=== PATIENT | female | born 1940 | race Caucasian/White ===

== ENCOUNTER 2022-03-26 09:35 | Inpatient (IN) | payer OTHER ==
[~2022-03-26] VITALS: Ht 152.4 cm; Wt 85.7 kg
[2022-03-26 09:40] VITALS: BP_SYST 151
[2022-03-26] MEDS ORDERED: NACL 0.9% 1,000 ML IV ONE (10:00)
[2022-03-26] MEDS ORDERED: ONDANSETRON HCL 4 MG/2 ML VIAL IVP ONE (10:00)
[2022-03-26 10:41] LABS: BASOPHILS # (AUTO) 0.1 K/uL (0.0-0.2); BASOPHILS % (AUTO) 0.6 % (0.0-2.0); EOSINOPHILS # (AUTO) 0.2 K/uL (0.0-0.4); EOSINOPHILS % (AUTO) 1.6 % (0.0-4.0); HEMATOCRIT 35.5 % (36-48); LYMPHOCYTES # (AUTO) 1.1 K/uL (1.0-5.5); MEAN CORPUSCULAR HEMOGLOBIN 32 pg (27-31); MEAN CORPUSCULAR HGB CONC 34 % (32-36); MEAN CORPUSCULAR VOLUME 95 fL (79.0-98.0); MONOCYTES # (AUTO) 0.3 K/uL (0.0-1.0); MONOCYTES % (AUTO) 3.2 % (1.7-9.3); NEUTROPHILS # (AUTO) 8.4 K/uL (1.8-7.7); NEUTROPHILS % (AUTO) 83.6 % (40.0-70.0); PLATELET COUNT (AUTO) 215 K/uL (130-430); RED BLOOD CELL COUNT(AUTO) 3.76 MIL/uL (4.2-6.2); RED CELL DISTRIBUTION WIDTH 12.8 % (9.0-15.0)
[2022-03-26] MEDS ORDERED: ATENOLOL 50 MG TABLET (TENORMIN) PO ONE (10:45)
[2022-03-26 10:59] LABS: ANION GAP 8 (5-15); CALCIUM 8.7 mg/dL (8.4-11.0); CHLORIDE 103 mmol/L (98-107); GLUCOSE 116 mg/dL (70-99); UREA NITROGEN, BLOOD 20 mg/dL (8-21)
[2022-03-26 11:08] LABS: INR 1.1 (0.8-1.2); PROTHROMBIN TIME 11.2 SECS (9.5-12.5)
[2022-03-26] MEDS ORDERED: LEVO25TA7 PO (11:13)
[2022-03-26] MEDS ORDERED: ESCI10TA PO (11:13)
[2022-03-26] MEDS ORDERED: LIP10 PO (11:13)
[2022-03-26] MEDS ORDERED: ATEN50TA PO (11:13)
[2022-03-26 11:14] LABS: BILIRUBIN,URINE NEGATIVE (NEGATIVE); CLARITY/URINE CLEAR (CLEAR); COLOR,URINE YELLOW (YELLOW); GLUCOSE,URINE NEGATIVE (NEGATIVE); KETONES,URINE NEGATIVE (NEGATIVE); LEUKOCYTE ESTERASE ,URINE NEGATIVE (NEGATIVE); NITRITE, URINE NEGATIVE (NEGATIVE); PH,URINE 6.5 (5.0-8.0); PROTEIN URINE NEGATIVE (NEGATIVE); UROBILINOGEN,URINE 0.2 (0.2-1.0)
[2022-03-26 11:17] LABS: BLOOD, URINE TRACE (NEGATIVE)
[2022-03-26 11:27] LABS: BACTERIA,URINE RARE /HPF (None Seen); WBC,URINE 0-3 /HPF (0-3)
[2022-03-26] MEDS ORDERED: iohexoL 350 mgI/mL, 100 ML INFUS..BTL IV ONE (11:44)
[2022-03-26 11:55] LABS: ALANINE AMINOTRANSFERASE 35 U/L (12-78); ALBUMIN 2.6 g/dL (3.4-4.8); ASPARTATE AMINOTRANSFERASE 35 U/L (10-37); TOTAL BILIRUBIN 0.7 mg/dL (0.0-1.0)
[2022-03-26 13:47] VITALS: BP_SYST 108
[2022-03-26] MEDS ORDERED: GLUCOSE (DEXTROSE) ORAL GEL -Adults PO PRN (15:00)
[2022-03-26] MEDS ORDERED: ACETAMINOPHEN 325 MG TABLET PO PRN ×2 (15:00→15:15)
[2022-03-26] MEDS ORDERED: D5W 1,000 ML IV PRN (15:00)
[2022-03-26] MEDS ORDERED: DEXTROSE 50% JECT 50 ML DISP.SYRIN IVP PRN (15:00)
[2022-03-26] MEDS ORDERED: HYDROcodone/ACETAMIN 10-325 MG TAB PO PRN (15:00)
[2022-03-26] MEDS ORDERED: NALOXONE HCL 0.4 MG/ML AMP (NARCAN) IVP PRN ×2 (15:00)
[2022-03-26] MEDS ORDERED: ONDANSETRON HCL 4 MG/2 ML VIAL IVP PRN (15:00)
[2022-03-26] MEDS ORDERED: LORazepam 2 MG/ML VIAL IVP PRN (15:00)
[2022-03-26] MEDS ORDERED: HYDROcodone/ACETAMIN 5-325 MG TAB (NORCO/ VICODIN) PO PRN (15:00)
[2022-03-26] MEDS: D5/0.45 NS 1,000 ML IV SCH (16:53)
[2022-03-26] MEDS ORDERED: DILTIAZEM HCL 30 MG TABLET PO ONE (17:00)
[2022-03-26 18:01] VITALS: BP_SYST 100
[2022-03-26] MEDS: APIXABAN 2.5 MG TABLET PO SCH (19:58)
[2022-03-26] MEDS: ATORVASTATIN 10 MG TABLET PO SCH (19:58)
[2022-03-26] MEDS ORDERED: APIXABAN 2.5 MG TABLET PO SCH (21:00)
[2022-03-26] MEDS: DILTIAZEM HCL 30 MG TABLET PO SCH (22:00)
[2022-03-27 00:13] VITALS: BP_SYST 114
[2022-03-27] MEDS: DILTIAZEM HCL 30 MG TABLET PO SCH ×3 (05:28→21:17)
[2022-03-27] MEDS: D5/0.45 NS 1,000 ML IV SCH ×3 (05:30→15:23)
[2022-03-27] MEDS: LEVOTHYROXINE SODIUM 0.025 MG TABLET PO SCH (06:15)
[2022-03-27 07:04] LABS: BASOPHILS % (AUTO) 0.7 % (0.0-2.0); EOSINOPHILS # (AUTO) 0.3 K/uL (0.0-0.4); EOSINOPHILS % (AUTO) 6.1 % (0.0-4.0); LYMPHOCYTES # (AUTO) 1.4 K/uL (1.0-5.5); LYMPHOCYTES % (AUTO) 28.5 % (20.5-51.5); MEAN CORPUSCULAR HEMOGLOBIN 33 pg (27-31); MEAN CORPUSCULAR HGB CONC 35 % (32-36); MEAN CORPUSCULAR VOLUME 94 fL (79.0-98.0); MONOCYTES # (AUTO) 0.3 K/uL (0.0-1.0); MONOCYTES % (AUTO) 7.1 % (1.7-9.3); NEUTROPHILS # (AUTO) 2.8 K/uL (1.8-7.7); NEUTROPHILS % (AUTO) 57.6 % (40.0-70.0); PLATELET COUNT (AUTO) 189 K/uL (130-430); RED BLOOD CELL COUNT(AUTO) 3.39 MIL/uL (4.2-6.2); RED CELL DISTRIBUTION WIDTH 13.2 % (9.0-15.0); WHITE BLOOD COUNT (AUTO) 4.8 K/uL (4.8-10.8)
[2022-03-27 08:07] LABS: ALANINE AMINOTRANSFERASE 30 U/L (12-78); ALBUMIN 2.3 g/dL (3.4-4.8); ANION GAP 5 (5-15); ASPARTATE AMINOTRANSFERASE 17 U/L (10-37); CALCIUM 8.4 mg/dL (8.4-11.0); CHLORIDE 109 mmol/L (98-107); CREATININE 1.22 mg/dL (0.55-1.30); GLUCOSE 117 mg/dL (70-99); TOTAL BILIRUBIN 0.4 mg/dL (0.0-1.0); UREA NITROGEN, BLOOD 15 mg/dL (8-21)
[2022-03-27 08:19] VITALS: BP_SYST 118
[2022-03-27] MEDS ORDERED: ESCITALOPRAM OXALATE 10 MG TABLET PO SCH (09:00)
[2022-03-27] MEDS: CITALOPRAM HYDROBROMIDE 20 MG TABLET PO SCH (10:16)
[2022-03-27] MEDS: ATENOLOL 50 MG TABLET (TENORMIN) PO SCH (10:16)
[2022-03-27] MEDS: APIXABAN 2.5 MG TABLET PO SCH ×2 (10:17→21:16)
[2022-03-27 11:26] VITALS: BP_SYST 138
[2022-03-27 15:19] VITALS: BP_SYST 109
[2022-03-27 20:00] VITALS: BP_SYST 137
[2022-03-27] MEDS: ATORVASTATIN 10 MG TABLET PO SCH (21:16)
[2022-03-28] VITALS: BP_SYST 128
[2022-03-28] MEDS: D5/0.45 NS 1,000 ML IV SCH (03:25)
[2022-03-28] MEDS: LEVOTHYROXINE SODIUM 0.025 MG TABLET PO SCH (06:03)
[2022-03-28] MEDS: DILTIAZEM HCL 30 MG TABLET PO SCH ×2 (06:03→14:00)
[2022-03-28 07:51] VITALS: BP_SYST 145
[2022-03-28 08:09] LABS: BASOPHILS % (AUTO) 0.9 % (0.0-2.0); EOSINOPHILS # (AUTO) 0.3 K/uL (0.0-0.4); EOSINOPHILS % (AUTO) 5.9 % (0.0-4.0); HEMATOCRIT 33.2 % (36-48); HEMOGLOBIN 11.3 g/dL (12.0-16.0); LYMPHOCYTES # (AUTO) 1.4 K/uL (1.0-5.5); LYMPHOCYTES % (AUTO) 31.4 % (20.5-51.5); MEAN CORPUSCULAR HEMOGLOBIN 32 pg (27-31); MEAN CORPUSCULAR HGB CONC 34 % (32-36); MEAN CORPUSCULAR VOLUME 95 fL (79.0-98.0); MONOCYTES # (AUTO) 0.4 K/uL (0.0-1.0); MONOCYTES % (AUTO) 8.9 % (1.7-9.3); NEUTROPHILS # (AUTO) 2.4 K/uL (1.8-7.7); NEUTROPHILS % (AUTO) 52.9 % (40.0-70.0); PLATELET COUNT (AUTO) 206 K/uL (130-430); RED BLOOD CELL COUNT(AUTO) 3.51 MIL/uL (4.2-6.2); RED CELL DISTRIBUTION WIDTH 13.2 % (9.0-15.0); WHITE BLOOD COUNT (AUTO) 4.6 K/uL (4.8-10.8)
[2022-03-28 08:27] LABS: ANION GAP 6 (5-15); CALCIUM 8.4 mg/dL (8.4-11.0); CHLORIDE 108 mmol/L (98-107); GLUCOSE 112 mg/dL (70-99); UREA NITROGEN, BLOOD 15 mg/dL (8-21)
[2022-03-28] MEDS: ATENOLOL 50 MG TABLET (TENORMIN) PO SCH (08:45)
[2022-03-28] MEDS: CITALOPRAM HYDROBROMIDE 20 MG TABLET PO SCH (08:45)
[2022-03-28] MEDS: APIXABAN 2.5 MG TABLET PO SCH (08:46)
[2022-03-28 11:34] VITALS: BP_SYST 142
[2022-03-28 14:07] VITALS: BP_SYST 105
== END 2022-03-28 15:00 | disposition home or self-care (01) | DRG 308 ==
LOC: SED 09:35 → STU 12:01
PROVIDERS: ADMIT Preventive Medicine Preventive Medicine/Occupational Environmental Medicine; ATTEND Specialist
DX: I48.91 Unspecified atrial fibrillation (principal); E43 Unspecified severe protein-calorie malnutrition; I10 Essential (primary) hypertension; D64.9 Anemia, unspecified; E03.9 Hypothyroidism, unspecified; E11.65 Type 2 diabetes mellitus with hyperglycemia; E78.5 Hyperlipidemia, unspecified; E88.09 Other disorders of plasma-protein metabolism, not elsewhere classified; Z20.822 Contact with and (suspected) exposure to COVID-19; G40.909 Epilepsy, unspecified, not intractable, without status epilepticus; Z79.899 Other long term (current) drug therapy; Z86.73 Personal history of transient ischemic attack (TIA), and cerebral infarction without residual deficits; Z68.36 Body mass index [BMI] 36.0-36.9, adult
CPT/HCPCS: 36415; 70450-TC; 70496; 70498; 71045; 71250-TC; 76376; 80048; 80053; 81000; 83605; 83735; 83880; 84100; 84484; 85025; 85610-TC; 85730-TC; 87040; 87081; 87186-TC; 93005; 93306; 96361; 96374; 97116-GP; 97163-GP; 99285; G0378; J2405; Q9967